=== PATIENT | female | born 1965 ===

== ENCOUNTER → 2024-03-14 18:33 | Outpatient (CLI) | payer OTHER, SELFPAY ==
--- NOTE | 2024-03-14 18:38 | DI.MRI.S_ITS ---
PROCEDURE: MR LOWER LEG RT WO CON INDICATIONS: Other specified disorders of bone, lower leg - right TECHNIQUE: Noncontrast coronal and sagittal T1 spin echo and STIR; axial T1 spin echo and T2 fast spin echo with fat saturation through the right lower leg. COMPARISON: [facility], CR, XR TIBIA FIBULA BILATERAL, 03/06/2024, 16:57. FINDINGS: Image quality: Excellent. Bones: There is mild tricompartmental osteoarthritis in right knee more notably in medial femoral tibial compartment. No marrow edema. No fracture or dislocation. No suspicious intraosseous lesion. No cortical erosion or abnormal periosteal reaction. Soft tissues: The scanned muscles demonstrate normal overall bulk and internal signal. Subcutaneous tissues appear normal as well. No soft tissue masses are present. No drainable fluid collection. IMPRESSION: 1. Mild tricompartmental osteoarthritis more notably in medial femoral tibial compartment. No fracture or dislocation. No abnormal tibial stress injury. No suspicious bony lesions. 2. No lower leg muscle or tendon signal abnormalities. No soft tissue mass or drainable fluid collection. Dictated by: Patrick Burnette M.D. on 03/15/2024 at 9:14 Approved by: Patrick Burnette M.D. on 03/15/2024 at 9:17
--- NOTE | 2024-03-14 18:38 | DI.MRI.S_ITS ---
PROCEDURE: MR LOWER LEG LT WO CON COMPARISON: [facility], CR, XR TIBIA FIBULA BILATERAL, 03/06/2024, 16:57. INDICATIONS: Other specified disorders of bone, lower leg - left Technique: Multiplanar and multisequence MR images of left lower leg were obtained without contrast. FINDINGS: Bones and joints: There is no marrow edema. No cortical erosion or periosteal reaction. No fracture or dislocation. No suspicious intraosseous lesion. Mild tricompartmental osteoarthritis in left knee is seen more notably in medial femoral tibial compartment. Soft tissues: The visualized left lower leg muscles show normal size and signal intensity. No intramuscular mass or fluid collection. No discrete soft tissue mass or drainable fluid collection. No gross tendon signal abnormality is seen. IMPRESSION: 1. Mild tricompartmental osteoarthritis in left knee more notably in medial femoral tibial compartment. No lower leg fracture or dislocation. No suspicious bony lesions. No evidence of tibial stress injury. 2. No gross muscle or tendon signal abnormalities. No soft tissue mass or drainable fluid collection. Dictated by: Patrick Burnetet M.D. on 03/15/2024 at 9:04 Approved by: Patrick Burnette M.D. on 03/15/2024 at 9:14
== END ==
PROVIDERS: PCP Nurse Practitioner; Referring Provider Physician Assistant Medical; Visit Provider Physician Assistant Medical
DX: M89.8X6 Other specified disorders of bone, lower leg (principal); M17.0 Bilateral primary osteoarthritis of knee
CPT/HCPCS: 73718